=== PATIENT | male | born 1995 | race Caucasian/White ===

== ENCOUNTER 2023-02-07 11:27 | Emergency (ER) | payer OTHER ==
[~2023-02-07] VITALS: Ht 177.8 cm; Wt 83.0 kg
[~2023-02-07 11:27] MED LIST: IBUP800 PO; TRAM50 PO
[2023-02-07 12:01] LABS: BASOPHILS ABSOLUTE AUTO 0.04 K/mm3 (0.00-0.23); BASOPHILS PERCENT AUTO 0 % (0-2); EOSINOPHILS ABSOLUTE AUTO 0.03 K/mm3 (0.00-0.68); EOSINOPHILS PERCENT AUTO 0 % (0-6); Hematocrit 42.9 % (37.0-53.0); Hemoglobin 15.2 g/dL (13.5-17.5); IMMATURE GRAN ABSOLUTE AUTO 0.02 K/mm3 (0.00-0.10); IMMATURE GRAN PERCENT AUTO 0 % (0-1); LYMPHOCYTES ABSOLUTE AUTO 1.19 K/mm3 (0.84-5.20); LYMPHOCYTES PERCENT AUTO 12 % (21-46); MONOCYTES ABSOLUTE AUTO 0.62 K/mm3 (0.16-1.47); MONOCYTES PERCENT AUTO 6 % (4-13); Mean Corpuscular HGB Conc 35.4 g/dL (31.5-36.5); Mean Corpuscular Volume 93 fL (80-100); NEUTROPHILS ABSOLUTE AUTO 7.89 K/mm3 (1.96-9.15); NEUTROPHILS PERCENT AUTO 81 % (41-73); Platelet Count 267 K/mm3 (150-400); RDW Coefficient Variation 12.2 % (11.7-14.2); RDW Standard Deviation 42.3 fL (35.1-46.3); Red Blood Cell Count 4.61 M/mm3 (4.30-5.90); White Blood Cell Count 9.79 K/mm3 (4.00-11.30)
[2023-02-07 12:17] LABS: Albumin, Blood 4.2 g/dL (3.4-5.0); Albumin/Globulin Ratio 1.3 (0.8-1.8); Bilirubin, Total 1.9 mg/dL (0.1-1.0); Creatinine, Blood 0.67 mg/dL (0.60-1.20); Globulin, Blood 3.2 g/dL (2.2-4.0); Potassium, Blood 3.8 mmol/L (3.5-5.5); Total Protein, Blood 7.4 g/dL (6.4-8.2)
[2023-02-07 14:30] VITALS: BP 143/95
[2023-02-07] MEDS ORDERED: Percocet 7.5-31 EACH PO (15:01)
== END 2023-02-07 15:20 | disposition home or self-care (01) ==
LOC: ER 11:27
PROVIDERS: Physician Assistant
DX: J93.9 Pneumothorax, unspecified (principal); Z88.8 Allergy status to other drugs, medicaments and biological substances
CPT/HCPCS: 71045; 71046; 80053; 83690; 85025; J1170; J2405

== ENCOUNTER 2023-02-08 07:49 | Inpatient (IN) | payer OTHER ==
[~2023-02-08] VITALS: Ht 177.8 cm; Wt 83.0 kg
[~2023-02-08 07:49] MED LIST changes: +Percocet 7.5-31 EACH PO
[2023-02-08 11:37] LABS: BASOPHILS ABSOLUTE AUTO 0.03 K/mm3 (0.00-0.23); BASOPHILS PERCENT AUTO 0 % (0-2); EOSINOPHILS ABSOLUTE AUTO 0.06 K/mm3 (0.00-0.68); EOSINOPHILS PERCENT AUTO 1 % (0-6); Hematocrit 43.6 % (37.0-53.0); Hemoglobin 15.3 g/dL (13.5-17.5); IMMATURE GRAN ABSOLUTE AUTO 0.03 K/mm3 (0.00-0.10); IMMATURE GRAN PERCENT AUTO 0 % (0-1); LYMPHOCYTES ABSOLUTE AUTO 1.03 K/mm3 (0.84-5.20); LYMPHOCYTES PERCENT AUTO 10 % (21-46); MONOCYTES ABSOLUTE AUTO 0.59 K/mm3 (0.16-1.47); MONOCYTES PERCENT AUTO 6 % (4-13); Mean Corpuscular HGB 33.3 pg (26.0-34.0); Mean Corpuscular HGB Conc 35.1 g/dL (31.5-36.5); Mean Corpuscular Volume 95 fL (80-100); NEUTROPHILS ABSOLUTE AUTO 8.95 K/mm3 (1.96-9.15); NEUTROPHILS PERCENT AUTO 84 % (41-73); Platelet Count 246 K/mm3 (150-400); RDW Coefficient Variation 12.5 % (11.7-14.2); RDW Standard Deviation 43.5 fL (35.1-46.3); White Blood Cell Count 10.69 K/mm3 (4.00-11.30)
[2023-02-08 12:00] LABS: Bun/Creatinine Ratio 11.4 (12.0-20.0); Calcium, Blood 8.5 mg/dL (8.5-10.1); Creatinine, Blood 0.62 mg/dL (0.60-1.20)
[2023-02-08 12:01] LABS: International Normalized Ratio 1.02; Prothrombin Time Results 10.7 Sec (9.7-11.5)
[2023-02-08 16:00] VITALS: BP 144/106
--- NOTE | 2023-02-08 16:41 | NUR ---
PT TO ROOM FROM ED PT TRANSFERRED SELF FROM [facility] TO BED WITH MIN ASSISTANCE W/CT. CT TO WALL SUCTION PER ORDERS. SLIGHT FLUCTUATION NOTED. SCANT AMOUNT SS DRAINAGE NOTED IN TUBING. NO CREPITUS NOTED. LCA T/O LOBES. THORAVENT TO LCW
--- NOTE | 2023-02-08 17:54 | NUR ---
SUMMARY NO ACUTE CHANGES SINCE ARRIVING TO FLOOR. PT EATING DINNER AND VISITING W/GUESTS. REPORTS PAIN TO BACK HAS IMPROVED FROM 7 TO 4 AFTER 1 TAB NORCO PER ORDERS. CALL LIGHT IN REACH. DENIES ANY NEEDS AT THIS TIME.
[2023-02-08 18:50] VITALS: BP 127/91
--- NOTE | 2023-02-08 19:10 | NUR ---
PT C/O OF L AXILLARY PAIN THORAVENT APPEARS TO BE PULLING TO L SIDE. PT DENIES ANY INCREASED SOB. VSS. CREPITUS NOTED. NOTIFIED DR GUARDADO. ORDERS OBTAINED FOR CXR. REPORTED GIVEN TO ONCOMING SHIFT.
--- NOTE | 2023-02-09 02:50 | NUR ---
THORAVENT UPDATE @ APPROX 0100, PATIENT CALLED IN SEVERE PAIN TO LEFT CHEST. UPON ASSESSMENT THORAVENT LOOKED TO HAVE TWISTED/TURNED TO THE LEFT, CALLED PCU CHARGE TO HELP ASSESS AND REINFORCE TAPE DRESSING. CALL MADE TO DR. GUARDADO TO UPDATE ON PATIENT PAIN AND PREVIOUS X-RAY. REASSURED THIS RN THAT THE IMAGES LOOKED EXPECTED AND THORAVENT IS IN THE CORRECT PLACE. RECOMMENED REINFORCING TAPE TO POSITION THORAVENT FLUSH TO SKIN AND TO MONITOR FOR CHANGES IN VITALS OR BREATHING STATUS. VITALS ARE WNL, PATIENT DENIES SOB, AND WOB IS WNL. PATIENT IS ABLE TO TALK IN COMPLETE SENTENCES AND CREPITUS IS STILL IN THE LEFT CLAVICAL AREA, HAS NOT CHANGED SINCE PREVIOUS ASSESSMENT. WILL CONT. TO MONITOR VITALS AND BREATHING STATUS. THORAVENT IS TO SX, AT -20 AND THIS IS CURRENTLY WNL. PATIENT MEDICATED FOR PAIN PER EMAR. CALL LIGHT IS IN REACH.
[2023-02-09 04:33] VITALS: BP 123/72
--- NOTE | 2023-02-09 05:28 | NUR ---
SHIFT SUMMARY NO ACUTE EVENTS SINCE LAST UPDATED NOTE. PATIENT IS RESTING COMFORTABLY, SATS REMAIN ABOVE 95% ON RA. DENIES SOB. VITALS WNL. AOX4, SPEAKING FULL SENTENCES, W/ NO NOTED WOB. SLIGHT CREPITUS TO LEFT CLAVICAL AREA. THORAVENT TO SX, -20. WNL. TOLERATING PO INTAKE AND VOIDING EASILY. CALL LIGHT IN REACH. WILL REPORT TO DAY RN.
[2023-02-09 07:37] VITALS: BP 123/61
--- NOTE | 2023-02-09 08:52 | NUR ---
PATIENT CONSENT STATEMENT. PATIENT VERBALLY CONSENTED THIS 2ND YEAR [facility] RN STUDENT TO PARTICIPATE IN HIS CARE TODAY.
[2023-02-09 13:33] VITALS: BP 129/79
--- NOTE | 2023-02-09 13:53 | NUR ---
PLACED CHEST TUBE TO WATER SEAL. NO AIR LEAK NOTED WHEN PT COUGHED. PT DENIES CHEST PAIN OR SHORTNESS OF BREATH AT THIS TIME. INSTRUCTED PT TO CALL WITH SHORTNESS OF BREATH, CHEST PAIN, OR BREATHING CHANGES. CALL LIGHT WITHIN REACH.
[2023-02-09 14:44] VITALS: BP 128/85
--- NOTE | 2023-02-09 18:27 | NUR ---
END OF SHIFT SUMMARY. LEFT ANTERIOR CHEST TUBE WATER SEALED. NO AIR LEAK, TIDALING PRESENT. NO SOB, CONTINUOUS BIOX GREATER THAN 90%. MEDICATED WITH NORCO FOR PAIN X1 FOR CHEST TUBE DISCOMFORT. INDEPENDENT IN THE ROOM. CALL LIGHT WITHIN REACH.
[2023-02-09 20:51] VITALS: BP 159/86
[2023-02-10 04:30] VITALS: BP 130/78
--- NOTE | 2023-02-10 04:46 | NUR ---
SHIFT SUMMARY AOX4. VSS. DENIES N/V OR DYSPNEA. REPORTS 03/17 RUCW PAIN, MEDICATED 1x c 1 TAB NORCO & PAIN LEVEL DECREASED TO 5 WHICH PT STATED WAS TOLERABLE. E/U RESP. SPO2 >90% ON RA. BS DIM L LOBES. CHEST TUBE SET TO WATER SEAL. NO CREPITUS NOTED IN SURROUNDING SKIN OF TUBE. IND IN RM, CALL LIGHT IN REACH, WILL MONITOR.
[2023-02-10 07:21] VITALS: BP 142/92
--- NOTE | 2023-02-10 10:50 | NUR ---
CHEST TUBE OUT DR GUARDADO IN ROOM. TOOK CHEST TUBE OUT. TEGADERM PUT ON OVER INCISION OF CHEST TUBE. X-RAY FOR AROUND 1500.
[2023-02-10 14:01] VITALS: BP 141/93
--- NOTE | 2023-02-10 16:08 | NUR ---
SHIFT SUMMARY S/P SPONT PNEUMOTHORAX, A/OX4, VSS, TOLERATING PO, INDEPENDENT IN ROOM AND HALLS, SURGEON REMOVED CHEST TUBE THIS MORNING, 1500 CXR COMPLETED AND AWAITING RESULTS, PT CLEARED TO GO HOME BY SURGEON IF THE CXR SHOWS IMPROVEMENT. DISCHARGE PAPERS COMPLETE AND ARE WAITING ON APPROVAL FROM SURGERY. NO NEEDS REPORTED FROM PATIENT, WILL CTM. CALL LIGHT IN REACH.
--- NOTE | 2023-02-10 17:46 | NUR ---
DISCHARGE SUMMARY PT HAD CHEST TUBE REMOVED TODAY. TOLERATED WELL. PT AMBULATING AROUND UNIT, TOLERATING WELL. DISCHARGE PAPERWORK WENT OVER WIHT PT. EDUCATED ON SMOKING AND VAPING AND HOW IT CAN INCREASE REOCCURENCE. PT WELL RECEPTIVE TO EDUCATION. IVS REMOVED. ALL BELONGINGS WITH PT. PT WAS ABLE TO AMBULATE TO CAR.
== END 2023-02-10 17:40 | disposition home or self-care (01) | DRG 201 ==
LOC: ER 07:49 → SURS 13:42
PROVIDERS: Physician Assistant; ADMIT Surgery
PROC: 0W9B30Z Drainage of Left Pleural Cavity with Drainage Device, Percutaneous Approach (ICD-10-PCS; principal; 2023-02-07)
PROC: 0WPBX0Z Removal of Drainage Device from Left Pleural Cavity, External Approach (ICD-10-PCS; 2023-02-08)
PROC: 0W9B30Z Drainage of Left Pleural Cavity with Drainage Device, Percutaneous Approach (ICD-10-PCS; 2023-02-08)
PROC: 0WPBX0Z Removal of Drainage Device from Left Pleural Cavity, External Approach (ICD-10-PCS; 2023-02-10)
DX: J93.83 Other pneumothorax (principal); F17.210 Nicotine dependence, cigarettes, uncomplicated; F10.10 Alcohol abuse, uncomplicated; F12.10 Cannabis abuse, uncomplicated; Z98.890 Other specified postprocedural states; Z88.8 Allergy status to other drugs, medicaments and biological substances; Z88.6 Allergy status to analgesic agent; Z79.891 Long term (current) use of opiate analgesic
CPT/HCPCS: 32551; 71045; 80048; 85025; 85610; 96374-59; 96375-59; 96376-59; 99285-25; A9270; J1170; J2405